=== PATIENT | male | born 2005 | race Two or more races ===

== ENCOUNTER 2025-01-09 18:33 | Emergency (ER) | payer MEDICAID, OTHER ==
[~2025-01-09] VITALS: Ht 177.8 cm; Wt 102.3 kg
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
[2025-01-09] MEDS: KETOROLAC TROMETH 60MG/2ML VIAL IM ONE (21:27)
[2025-01-09] MEDS: HYDROcodone-ACET 10/325MG TAB PO ONE (21:27)
[2025-01-09 21:35] VITALS: BP 138/74; PULSE 92; TEMP 98.2
[2025-01-09 21:45] VITALS: RESP 17; O2SAT 98
--- NOTE | 2025-01-09 22:30 | DVH ---
INDICATION: AC separation COMPARISON: Same-day right shoulder and clavicle radiographs TECHNIQUE: CT of the rightleft shoulder was performed without contrast. Volume transverse images were obtained and reconstructed in multiple planes using bone and soft tissue algorithms. CONTRAST: None Radiation Dose Information: CTDI volume is 38.73 mGy. Dose-length product is 812.74 mGy*cm FINDINGS: No acute fracture. Less than 1 shaft width superior displacement of the distal clavicle relative to t he acromion, with surrounding soft tissue swelling. Normal glenohumeral alignment. No significant de generative change or obvious joint effusion. The imaged muscles, tendons, and chest contents are unremarkable. IMPRESSION: Redemonstrated findings of a low to moderate grade right AC joint injury. No right shoulder fracture .
[2025-01-09] MEDS ORDERED: HYDR-4798 PO (23:04)
[2025-01-09] MEDS ORDERED: IBUP-1455 PO (23:04)
== END 2025-01-09 23:53 | disposition home or self-care (01) ==
LOC: ER 18:35
DX: S43.101A Unspecified dislocation of right acromioclavicular joint, initial encounter (principal); V29.99XA Rider (driver) (passenger) of other motorcycle injured in unspecified traffic accident, initial encounter; Y93.89 Activity, other specified; Y92.488 Other paved roadways as the place of occurrence of the external cause; Y99.8 Other external cause status
CPT/HCPCS: 73000; 73030; 73200; 96372; 99285; J1885